=== PATIENT | female | born 1995 | race Caucasian/White ===

== ENCOUNTER 2019-02-16 13:38 | Emergency (ER) | payer OTHER ==
[2019-02-16 13:51] VITALS: BP 152/95
[2019-02-16] MEDS ORDERED: IBUPROFEN 600 MG TABLET PO STA (14:00)
--- NOTE | 2019-02-16 14:05 | ED Physician Documentation ---
PD HPI UPPER EXT INJURY - Stated complaint Stated Complaint: R HAND INJ - Chief complaint Chief Complaint: Ext Problem - History obtained from History obtained from: Patient (She was at work a couple of hours ago and a door slammed on her right index finger which is her dominant hand. No other injuries. Pain is moderate.) Review of Systems Constitutional: reports: Reviewed and negative Cardiac: reports: Reviewed and negative Respiratory: reports: Reviewed and negative PD PAST MEDICAL HISTORY - Past Medical History Past Medical History: No Cardiovascular: None Respiratory: None Neuro: None Endocrine/Autoimmune: None GI: None SUPPLY CHAIN TECH: None : None HEENT: None Psych: None Musculoskeletal: None Derm: None - Past Surgical History Past Surgical History: No - Allergies Allergies/Adverse Reactions: Allergies Allergy/AdvReac Type Severity Reaction Status Date / Time Penicillins Allergy Rash Verified 02/16/19 13:51 - Social History Does the pt smoke?: No Smoking Status: Never smoker Does the pt drink ETOH?: No Does the pt have substance abuse?: No - Immunizations Immunizations are current?: Yes - POLST Patient has POLST: No PD ED PE NORMAL - Vitals Vital signs reviewed: Yes - General General: Alert and oriented X 3, No acute distress - Extremities Extremities: Other (She is tender to the distal phalanx and DIP of the right index finger with out deformity. There is a tiny subungual hematoma. Less than 10%.) - Neuro Neuro: Alert and oriented X 3, Normal speech Results - Vitals Vitals: Vital Signs - 24 hr 02/16/19 13:48 Temperature 36.8 C Heart Rate 98 Respiratory 18 Rate Blood Pressure 152/95 H O2 Saturation 100 Oxygen O2 Source Room air - Rads (name of study) 3 views of the right second finger Radiology: EMP read contemporaneously (no frx) Departure - Departure Disposition: 01 Home, Self Care Clinical Impression: Crushed finger Qualifiers: Encounter type: initial encounter Qualified Code(s): S67.10XA - Crushing injury of unspecified finger(s), initial encounter Condition: Good Record reviewed to determine appropriate education?: Yes Instructions: ED Crush Injury Finger No Fx Comments: Ibuprofen as needed for pain, follow-up with your doctor in 1 week for recheck if not better. Return for new or worsening symptoms. Discharge Date/Time: 02/16/19 14:43
--- NOTE | 2019-02-16 14:33 | XRAY Report ---
Reason: finger inj Procedure Date: 02/16/2019 Accession Number: [id number] / [id number] Procedure: XR - Finger(s) RT CPT Code: Final Report FULL RESULT: EXAM: RIGHT 2ND DIGIT RADIOGRAPHY. EXAM DATE: 02/16/2019 02:14 PM. CLINICAL HISTORY: Finger injury. COMPARISON: None. TECHNIQUE: 3 views. FINDINGS: Bones: Normal. No fracture or bone lesion. Joints: Normal. No subluxations. Soft Tissues: There is apparent soft tissue swelling in the region of the distal 2nd finger without detection of radiopaque foreign body or soft tissue gas. IMPRESSION: Soft tissue swelling without fracture or dislocation detected. [facility]
== END 2019-02-16 14:43 | disposition home or self-care (01) ==
LOC: ED 13:38
DX: S67.10XA Crushing injury of unspecified finger(s), initial encounter (principal); W23.1XXA Caught, crushed, jammed, or pinched between stationary objects, initial encounter; Y92.89 Other specified places as the place of occurrence of the external cause; Y99.0 Civilian activity done for income or pay
CPT/HCPCS: 1040M; 73140; 99283; A9270